=== PATIENT | female | born 1975 ===

== ENCOUNTER → 2017-04-11 | Outpatient (CLI) | payer OTHER | LOC: FIMAGING 07:42 | PROVIDERS: ATTEND Radiology Diagnostic Radiology | DX: I83.93 Asymptomatic varicose veins of bilateral lower extremities (principal) ==

== ENCOUNTER 2017-04-24 07:49 | Day surgery (SDC) | payer OTHER ==
[2017-04-24] MEDS ORDERED: NALOXONE HCL 0.4 MG/ML INJ IVP PRN (07:58)
[2017-04-24] MEDS ORDERED: FLUMAZENIL 0.5 MG/5 ML MDV IVP PRN (07:58)
[2017-04-24] MEDS ORDERED: ONDANSETRON 4 MG/2 ML VIAL IVP ONE (07:58)
[2017-04-24] MEDS ORDERED: NS 1,000 ML IV ONE (07:58)
[2017-04-24] MEDS ORDERED: MIDAZOLAM 2 MG/2 ML VIAL IVP PRN (07:58)
[2017-04-24] MEDS ORDERED: fentaNYL 100 MCG/2 ML INJ IVP PRN (07:58)
[2017-04-24] MEDS ORDERED: MEPERIDINE 25 MG/ML SYR IVP PRN (07:58)
[2017-04-24] MEDS ORDERED: SODIUM TETRADECYL SULFATE 3% 2 ML VIAL IV ONE (08:37)
[2017-04-24] MEDS ORDERED: LIDO/EPI 1% **for epidural** 30 ML SDV ONE (08:37)
[2017-04-24 08:58] VITALS: PULSE 73; RESP 16
--- NOTE | 2017-04-24 09:27 | PDPROPOC ---
Sedation Plan of Care Sedation Plan of Care: vital signs stable, mental status noted, patient educated of risks, benefits, alternatives, patient can tolerate sedation ASA Classification: ASA 1 Planned drugs: fentanyl, midazolam Mallampati Score: Class 1 Mallampati Reference Image: Patient passed 3-3-2 rule?: Yes
--- NOTE | 2017-04-24 09:28 | PDGENHP ---
History & Physical Chief Complaint: RT LEG VARICOSE VEINS History of Present Illness: SYMPTOMATIC VARICOSE VEINS AFFECTING LIFE STYLE. Pertinent Past, Social, Family History: NO OTHER MEDICAL ISSUES. Relevant Physical Exam: SPIDER VEINS; REFLUXING GSV. Cardiorespiratory Assessment: RRR. CTA
[2017-04-24] MEDS ORDERED: ONDANSETRON DISINTEGRATING 4 MG TAB PO PRN (11:17)
[2017-04-24] MEDS ORDERED: HYDROCODONE/APAP 5/325 TAB PO PRN (11:17)
[2017-04-24] MEDS ORDERED: IBUPROFEN 200 MG TAB PO ONE (11:17)
[2017-04-24] MEDS ORDERED: NS 1,000 ML IV SCH (11:30)
--- NOTE | 2017-04-24 12:15 | PDRADPN ---
Radiology Procedure Note Date of Procedure: 04/24/17 Radiologist: Coty Orozco Anesthesia: IV Sedation Pre-op Diagnosis: RLE VARICOSE VEINS Post-op Diagnosis: SAME Indication: RT VARICOSE VEINS Procedure: RT GSV LASER, SCLEROTHERAPY Finding(s): SEE REPORT Inf/Abcess present in the surg proc area at time of surgery?: No Complications: NONE
[2017-04-24 12:33] VITALS: TEMP 98.2
[2017-04-24 12:48] VITALS: BP 120/75; O2SAT 95
== END 2017-04-24 12:15 | disposition home or self-care (01) ==
LOC: FIMAGING 07:49
PROVIDERS: ATTEND Radiology Diagnostic Radiology
PROC: 06LP3ZZ Occlusion of Right Saphenous Vein, Percutaneous Approach (ICD-10-PCS; principal; 2017-04-24 11:05)
PROC: 3E033TZ Introduction of Destructive Agent into Peripheral Vein, Percutaneous Approach (ICD-10-PCS; principal; 2017-04-24 11:05)
DX: I83.893 Varicose veins of bilateral lower extremities with other complications (principal)
CPT/HCPCS: J2250; J2310; J3010

== ENCOUNTER 2017-04-25 07:34 | Day surgery (SDC) | payer OTHER ==
[2017-04-25] MEDS ORDERED: HEPARIN 10,000 UNIT/10 ML MDV (1,000 UNIT/ML) IVP PRN (08:11)
[2017-04-25] MEDS ORDERED: ALTEPLASE 2 MG VIAL IVP PRN (08:11)
[2017-04-25] MEDS ORDERED: NALOXONE HCL 0.4 MG/ML INJ IVP PRN (08:11)
[2017-04-25] MEDS ORDERED: NS 1,000 ML IV ONE (08:11)
[2017-04-25] MEDS ORDERED: ONDANSETRON 4 MG/2 ML VIAL IVP ONE (08:11)
[2017-04-25] MEDS ORDERED: fentaNYL 100 MCG/2 ML INJ IVP PRN (08:11)
[2017-04-25] MEDS ORDERED: GLUCAGON HCL 1 MG VIAL IVP PRN (08:11)
[2017-04-25] MEDS ORDERED: MEPERIDINE 25 MG/ML SYR IVP PRN (08:11)
[2017-04-25] MEDS ORDERED: PROTAMINE SULFATE 50 MG/5 ML VIAL IVP PRN (08:11)
[2017-04-25] MEDS ORDERED: FLUMAZENIL 0.5 MG/5 ML MDV IVP PRN (08:11)
[2017-04-25] MEDS ORDERED: MIDAZOLAM 2 MG/2 ML VIAL IVP PRN (08:11)
[2017-04-25 08:28] VITALS: PULSE 72; RESP 18
[2017-04-25] MEDS ORDERED: LIDO/EPI 1% **for epidural** 30 ML SDV ONE (08:37)
--- NOTE | 2017-04-25 08:37 | PDGENHP ---
History & Physical Chief Complaint: SYMPTOMATIC LT LEG VARICOSITIES History of Present Illness: BILATERAL VARICOSE VEINS Pertinent Past, Social, Family History: NO OTHER SURGERIES Relevant Physical Exam: SOME BRUISING FROM YESTERDAY'S PROCEDURE BILATERALLY Cardiorespiratory Assessment: RRR.CTA
--- NOTE | 2017-04-25 08:37 | PDPROPOC ---
Sedation Plan of Care Sedation Plan of Care: vital signs stable, mental status noted, patient educated of risks, benefits, alternatives, patient can tolerate sedation ASA Classification: ASA 1 Planned drugs: fentanyl, midazolam Mallampati Score: Class 2 Mallampati Reference Image: Patient passed 3-3-2 rule?: Yes
[2017-04-25] MEDS ORDERED: SODIUM TETRADECYL SULFATE 3% 2 ML VIAL IV ONE (09:50)
[2017-04-25] MEDS ORDERED: ONDANSETRON DISINTEGRATING 4 MG TAB PO PRN (10:18)
[2017-04-25] MEDS ORDERED: HYDROCODONE/APAP 5/325 TAB PO PRN (10:18)
[2017-04-25] MEDS ORDERED: IBUPROFEN 200 MG TAB PO ONE (10:18)
[2017-04-25 10:30] VITALS: TEMP 98.1
[2017-04-25 11:19] VITALS: BP 116/94; O2SAT 96
== END 2017-04-25 11:38 | disposition home or self-care (01) ==
LOC: FIMAGING 07:34
PROVIDERS: ATTEND Radiology Diagnostic Radiology
PROC: 065Q3ZZ Destruction of Left Saphenous Vein, Percutaneous Approach (ICD-10-PCS; principal; 2017-04-25 10:09)
DX: I83.892 Varicose veins of left lower extremity with other complications (principal)
CPT/HCPCS: J2250; J3010

== ENCOUNTER 2017-09-12 09:10 | Emergency (ER) | payer OTHER ==
--- NOTE | 2017-09-12 09:32 | EDPHY ---
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 No exposure to high speed projectiles. No pathology. No pain with extraocular movements. No photosensitivity. No chemical exposure. No fever or chills. No recent illness. PHYSICAL EXAM (Prior to examination, patient consented to physical exam, hands were washed and my usual and customary physical exam procedures followed) 1) GENERAL: Well-developed, well-nourished, alert and oriented. Appears to be in no acute distress. 2) HEAD: Normocephalic 3) HEENT: sclera anicteric 4) LUNGS: Breathing comfortably. [5) OCULAR EXAM: Visual Acuity: OS 20/30, OU 20/30, OD 20/50 Pupils:equal round and reactive to light EOMI Lids: no edema or swelling, upper and lower lids were everted and no foreign bodies were visualized Skin: no proptosis, no periorbital erythema or swelling, no vesicles. no pain with extraocular movements. Conjunctivae: Left lateral erythema consistent with subconjunctival hemorrhage. Anterior chamber:normal, no hyphema or hypopyon Smoking Status: Never smoked Constitutional: Initial Vital Signs Temperature (C) 36.8 C 09/12/17 09:18 Heart Rate 78 09/12/17 09:18 Respiratory Rate 18 09/12/17 09:18 Blood Pressure 144/93 H 09/12/17 09:18 O2 Sat (%) 95 09/12/17 09:18 O2 Delivery Mode Room Air Allergies/Adverse Reactions: No Known Allergies Allergy (Verified 09/12/17 09:17) Home Medications: Medication Instructions Recorded 2 Meds For Gerd 09/12/17 MDM/Departure - MDM ED Course/Re-evaluation: Exam consistent with subconjunctival hemorrhage. Doubt conjunctivitis. Doubt acute closed angle glaucoma. We discussed supportive care, follow up with work comp as this occurred while she was at work. Usual and customary ophthalmological precautions and instructions provided with assistance of trauma director. I saw this patient independently based on established practice protocols. Care of patient under supervision of primary supervising physician Dr Houston . - Depart Disposition: Home, Routine, Self-Care Clinical Impression: Subconjunctival hemorrhage of left eye Condition: Good Instructions: Subconjunctival Hemorrhage (ED) Additional Instructions: Return to the ER if you develop vision changes, sensitivity to light, pain or any other symptoms that concern you. Referrals: Dannie Valerio MD [Medical Doctor] - 2-3 days, call for appt. Print Language: [place]
[2017-09-12 09:48] VITALS: BP 145/80
== END 2017-09-12 09:49 | disposition home or self-care (01) ==
DX: H11.32 Conjunctival hemorrhage, left eye (principal)